=== PATIENT | male | born 2005 | race Caucasian/White ===

== ENCOUNTER 2024-08-13 12:10 | Outpatient (OUT) | payer BC, SELFPAY ==
[2024-08-14 07:14] LABS: Varicella-Zoster V Ab, IgG Non Reactive (Non Reactive)
== END 2024-08-13 12:11 | disposition home or self-care (01) ==
LOC: LAB 12:20
PROVIDERS: PCP Family Medicine; Visit Provider Family Medicine
DX: Z00.00 Encounter for general adult medical examination without abnormal findings (principal)
CPT/HCPCS: 36415; 86787